=== PATIENT | male | born 1970 | race Caucasian/White ===

== ENCOUNTER 2017-01-01 18:04 | Emergency (ER) | payer BC ==
[~2017-01-01] VITALS: Ht 172.7 cm; Wt 72.0 kg
[2017-01-01] MEDS ORDERED: SODIUM CHLORIDE 0.9% 1,000 ML IV ONE (18:12)
[2017-01-01] MEDS ORDERED: SODIUM CHLORIDE 0.9% 1,000ML IVBOLUS ONE (18:30)
[2017-01-01] MEDS ORDERED: SODIUM CHLORIDE FLUSH 10ML SYR IVF ONE (18:30)
[2017-01-01 18:43] LABS: BLOOD UREA NITROGEN 32 mg/dL (7-18)
[2017-01-01] MEDS ORDERED: ONDANSETRON 2MG/ML, 2ML IVPush ONE ×2 (19:00→20:00)
[2017-01-01] MEDS ORDERED: HYDROmorphone 1 MG/ML, 1ML ONE (19:02)
[2017-01-01] MEDS ORDERED: ONDANSETRON 2MG/ML, 2ML ONE ×2 (19:03→19:40)
[2017-01-01] MEDS: HYDROmorphone 1 MG/ML, 1ML IVPush PRN ×2 (19:04→19:43)
[2017-01-01] MEDS ORDERED: OMNIPAQUE 350 MG/ML, 100ML BOTTLE ONE ×2 (20:15→20:21)
[2017-01-01] MEDS ORDERED: MORPHINE SULFATE 4 MG/ML, 1ML IVPush PRN (21:30)
[2017-01-01 22:04] VITALS: BP 132/76
== END 2017-01-01 23:01 | disposition short-term general hospital (02) ==
LOC: ED 20:51
DX: R51 Headache (principal); R42 Dizziness and giddiness; M54.2 Cervicalgia
CPT/HCPCS: 36415; 70450; 70496; 70498; 80048; 82040; 82550; 85025; 85610; 85730; 96361; 96374; 96375; 96376; 99291; J1170; J2405; J7030; Q9967

== ENCOUNTER 2017-01-05 22:26 | Emergency (ER) | payer BC ==
[~2017-01-05] VITALS: Ht 172.7 cm; Wt 69.5 kg
[2017-01-05] MEDS ORDERED: HYDR-3240 PO (22:59)
[2017-01-05] MEDS ORDERED: BUTA1CAP30 PO (22:59)
[2017-01-05] MEDS ORDERED: POLY17PO5 PO (22:59)
[2017-01-05] MEDS ORDERED: METO5TAB57 PO (22:59)
[2017-01-05] MEDS ORDERED: ONDA4TAB10 PO (22:59)
[2017-01-05] MEDS ORDERED: GLUC1CAP18 PO (22:59)
[2017-01-05] MEDS ORDERED: SENN-66 PO (22:59)
[2017-01-05] MEDS ORDERED: SCOP1PAT TD (22:59)
[2017-01-05] MEDS ORDERED: SODIUM CHLORIDE 0.9% 1,000ML IVBOLUS ONE (23:30)
[2017-01-06] MEDS ORDERED: METHYLNALTREXONE 12 MG/0.6 ML SQ ONE
[2017-01-06] MEDS ORDERED: DICYCLOMINE 10 MG/ML, 2ML IM ONE
[2017-01-06 00:10] LABS: ASPARTATE AMINO TRANSFERASE 16 U/L (15-37); BLOOD UREA NITROGEN 19 mg/dL (7-18)
[2017-01-06 00:59] LABS: PATH.CAST-FLAG NOT PRESENT; SPERM-FLAG NOT PRESENT; SRC-FLAG NOT PRESENT; XTAL-FLAG NOT PRESENT; YLC-FLAG NOT PRESENT
[2017-01-06 05:47] VITALS: BP 113/78
== END 2017-01-06 05:35 | disposition home or self-care (01) ==
LOC: ED 01-06 05:29
DX: M51.36 Other intervertebral disc degeneration, lumbar region (principal); M51.16 Intervertebral disc disorders with radiculopathy, lumbar region; R50.9 Fever, unspecified
CPT/HCPCS: 36415; 70450; 72141; 72146; 72148; 74022; 80053; 81001; 83605; 84145; 85025; 87040; 96361; 96372; 99285; J0500; J7030